=== PATIENT | female | born 1975 | race Asian ===

== ENCOUNTER 2019-04-24 18:55 | Emergency (ER) | payer OTHER ==
[~2019-04-24] VITALS: Ht 160 cm; Wt 88.5 kg
--- NOTE | 2019-04-24 19:00 | NUR ---
Patient BIBA BLS, transferred to bed 6. RN evaluating patient at bedside.
[2019-04-24 19:05] VITALS: BP 150/85
[2019-04-24 19:15] VITALS: BP 150/85
--- NOTE | 2019-04-24 19:15 | NUR ---
43 Y/O F BIBA S/P SLIP AND FALL AT 1850. C/O L ANKLE PAIN. AAOX4. PER PT "I WAS WALKING IN THE PARKING LOT AND ROLLED MY ANKLE. I HEARD A POP." 6/10 PAIN, ACHING AND THROBBING. NO LOC. NO DEFORMITY NOTED. +CMS. SKIN NORMAL PER ETHNICITY. BILATERAL PEDAL PULSE PRESENT. ERMD NOTIFIED OF PT STATUS. WILL CONTINUE TO MONITOR.
[2019-04-24] MEDS ORDERED: IBUPROFEN 600 MG TAB PO ONE (19:45)
--- NOTE | 2019-04-24 20:54 | NUR ---
CITLALY WRAP PLACED ON PT L ANKLE. +CSM
--- NOTE | 2019-04-24 20:55 | NUR ---
PT GIVEN INSTRUCTION ON PROPER USE OF CRUTCHES. CRUTCHES FITTED TO PT HEIGHT AND ARM LENGTH. PT GIVEN INSTRUCTION ON USE OF CRUTCHES, INCLUDING SITTING TO STANDING AND WALKING. PT DEMONSTRATED SAFE USE FOR APPROXIMATELY 40 FEET, PT STATED SHE FELT COMFORTABLE WITH USE.
--- NOTE | 2019-04-24 21:27 | NUR ---
Patient discharged with v/s stable. Written and verbal after care instructions given and explained. Patient alert, oriented and verbalized understanding of instructions. Ambulatory with steady gaiton cruthces. All questions addressed prior to discharge. ID band removed. Patient advised to follow up with PMD. Rx of naprosyn given. Patient educated on indication of medication including possible reaction and side effects. Opportunity to ask questions provided and answered.
== END 2019-04-24 21:27 | disposition home or self-care (01) ==
LOC: MED 18:55
DX: S93.402A Sprain of unspecified ligament of left ankle, initial encounter (principal); I10 Essential (primary) hypertension; Z98.890 Other specified postprocedural states; X58.XXXA Exposure to other specified factors, initial encounter; Y93.01 Activity, walking, marching and hiking; Y92.481 Parking lot as the place of occurrence of the external cause; Y99.8 Other external cause status
CPT/HCPCS: 73610; 99283; Q0092